=== PATIENT | female | born 1980 | race Caucasian/White ===

== ENCOUNTER 2024-11-22 12:25 | Observation (INO) | payer BC, SELFPAY ==
[2024-11-22] VITALS (10 sets, daily range): BP systolic 122–150; BP diastolic 75–94; PULSE 52–70; TEMP 36.7–36.9; O2SAT 94–98; BMI 22.7; BMI 23.5
--- NOTE | 2024-11-22 12:30 | ECG_ITS ---
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 Measurements Intervals [place] Rate: 70 P: 77 ID: [id number] QRS: 80 QRSD: 94 T: 41 QT: 396 QTc: 416 Interpretive Statements 1100 Sinus rhythm 4664 Twave abnormality, possible inferior ischemia 9150 abnormal ECG Compared to ECG 07/18/2022 23:57:37 Possible ischemia now present Electronically Signed On 11-22-2024 18:08:25 EDT by JAMES TRAORE M.D.
--- NOTE | 2024-11-22 12:30 | ED.DIZZY1 ---
HPI - Dizziness General Chief Complaint: Syncope Stated Complaint: DIZZY/WEAKNESS Time Seen by Provider: 11/22/24 12:27 History of Present Illness HPI Narrative: The patient is a 44-year-old female who had 1 day right rotator cuff surgery yesterday in [facility], this morning she was in the bathroom with her mother when she was helping her wash her hair when all of a sudden she feels that she is going to pass out, few seconds after that the patient was lowered to the floor and she did pass out according to the mom for few seconds during which she was not responding to her but she was little bit pale, there was no foaming there was no abnormal movement of the upper or lower extremities The patient denies having any chest pain before or after when she woke up she was a little bit confused At this moment the patient does not have any complaints Related Data Home Medications ?Medication ?Instructions ?Recorded ?Confirmed meloxicam 15 mg tablet 15 mg PO DAILY 11/22/24 11/22/24 oxycodone 5 mg tablet 5 mg PO Q6H PRN pain 11/22/24 11/22/24 propranolol 20 mg tablet 20 mg PO Q12H 11/22/24 11/22/24 Allergies Allergy/AdvReac Type Severity Reaction Status Date / Time No Known Drug Allergies Allergy Verified 11/22/24 12:27 Review of Systems ROS Status of ROS 10 or more systems reviewed and unremarkable except as noted in history and below PFSH PFSH Social History Little interest or pleasure in doing things: not at all Feeling down, depressed, or hopeless: not at all Exam Narrative Exam Narrative: Nurses notes and vital signs reviewed and patient is not hypoxic. General: Well-appearing and in no apparent distress. Skin: Warm, dry, no pallor noted. No rash. Head: Normocephalic, atraumatic. Neck: Supple, non-tender. Cardiovascular: Regular Rate and Rhythm without murmur, gallop or rub. Respiratory: No accessory muscle use or respiratory distress. Lungs are clear to auscultation, no wheezing, rales or rhonchi Chest Wall: no tenderness Back: No midline thoracic or lumbar vertebral tenderness. No CVA tenderness Musculoskeletal: Right shoulder immobilizer GI: Abdomen is soft, non-distended. Normal bowel sounds. No masses appreciated. No tenderness to palpation. No rebound, guarding, or rigidity noted. Neurological: A&O x4. No cranial nerve dysfunction observed Constitutional Vital Signs, click to edit/add: Last Vital Signs Temp 98.5 F 11/22/24 12:28 Pulse 62 11/22/24 12:28 Resp 18 11/22/24 12:28 BP 150/94 H 11/22/24 12:28 Pulse Ox 98 11/22/24 12:28 O2 Del Method Room Air 11/22/24 12:28 Course Vital Signs Vital signs: Vital Signs Temperature 98.5 F 11/22/24 12:28 Pulse Rate 62 11/22/24 12:28 Respiratory Rate 18 11/22/24 12:28 Blood Pressure 150/94 H 11/22/24 12:28 Pulse Oximetry 98 11/22/24 12:28 Oxygen Delivery Method Room Air 11/22/24 12:28 Temperature 98.5 F 11/22/24 12:28 Pulse Rate 62 11/22/24 12:28 Respiratory Rate 18 11/22/24 12:28 Blood Pressure 150/94 H 11/22/24 12:28 Pulse Oximetry 98 11/22/24 12:28 Oxygen Delivery Method Room Air 11/22/24 12:28 MDM - Dizziness MDM Narrative Medical decision making narrative: By the EMS the patient had a initially an EKG when they arrived to the scene she was in A-fib and the EKG initially does show irregularity in A-fib rhythm but then the patient had another EKG when she got to the ambulance and it was sinus rhythm Arrival to us the patient have a EKG that shows sinus rhythm with a heart rate of [address] elevation or depression The patient CBC and chemistry shows a low potassium of 2.8 the patient was started on IV and p.o. potassium for correction of the hypokalemia The patient will be admitted for observation and monitoring of the rhythm overnight Patient case discussed with and he agreed with above-mentioned plan Lab Data Labs: Lab Results 11/22/24 Range/Units 12:35 WBC 11.0 (4.0-11.0) 10^3/uL RBC 4.52 (4.20-5.40) 10^6/uL Hgb 14.2 (12.0-16.0) g/dL Hct 41.8 (36.0-48.0) % MCV 92.5 (81.0-99.0) fL MCH 31.4 (26.7-34.0) pg MCHC 34.0 (29.9-35.2) g/dL RDW 12.3 (11.0-15.0) % Plt Count 232 (150-450) 10^3/uL MPV 10.2 (9.5-13.5) fL Neut % (Auto) 63.0 (43.0-75.0) % Lymph % (Auto) 26.6 (20.5-60.0) % [place] % (Auto) 8.3 (1.7-12.0) % Eos % (Auto) 1.3 (0.9-7.0) % Baso % (Auto) 0.5 (0.2-2.0) % Neut # (Auto) 6.9 H (1.4-6.5) 10^3/uL Lymph # (Auto) 2.9 (1.2-3.8) 10^3/uL [place] # (Auto) 0.9 H (0.3-0.8) 10^3/uL Eos # (Auto) 0.1 (0.0-0.7) 10^3/uL Baso # (Auto) 0.1 (0.0-0.1) 10^3/uL Abs Immat Gran (auto) 0.03 (0.00-0.03) 10^3/uL Imm/Tot Granulo (auto) 0.3 (0.0-0.5) % PT 10.2 (9.0-11.6) sec INR 0.96 Sodium 143 (136-145) mmol/L Potassium 2.8 L* (3.5-5.1) mmol/L Chloride 108 H (98-107) mmol/L Carbon Dioxide 29.7 (21.0-32.0) mmol/L Anion Gap 8.1 BUN 10.0 (7.0-18.0) mg/dL Creatinine 0.74 (0.55-1.02) mg/dL Est GFR ( Amer) >60 (>=60 mL/min/1.73m^2) Est GFR (Non-Af Amer) >60 (>=60 mL/min/1.73m^2) BUN/Creatinine Ratio 13.5 Glucose 102 (74-106) mg/dL Calcium 8.4 L (8.5-10.1) mg/dL Magnesium 2.3 (1.8-2.4) mg/dL Total Bilirubin 0.2 (0.2-1.0) mg/dL AST 20 (15-37) U/L ALT 19 (14-59) U/L Alkaline Phosphatase 65 (46-116) U/L Troponin I High Sens 4.3 (4.0-51.3) pg/mL Total Protein 6.4 (6.4-8.2) g/dL Albumin 3.4 (3.4-5.0) g/dL Globulin 3.0 g/dL Albumin/Globulin Ratio 1.1 Serum HCG, Qual Negative (NEGATIVE) Discharge Plan Discharge Chief Complaint: Syncope Clinical Impression: Syncope, Acute hypokalemia, Irregular heart rhythm Patient Disposition: Admitted as Observation Time of Disposition Decision: 13:51
[2024-11-22 12:41] LABS: Basophils Absolute Auto 0.1 10^3/uL (0.0-0.1); Basophils Percent Auto 0.5 % (0.2-2.0); Eosinophils Absolute Auto 0.1 10^3/uL (0.0-0.7); Eosinophils Percent Auto 1.3 % (0.9-7.0); Hematocrit 41.8 % (36.0-48.0); Hemoglobin 14.2 g/dL (12.0-16.0); Immature Granulocytes Abs Auto 0.03 10^3/uL (0.00-0.03); Immature Granulocytes Pct Auto 0.3 % (0.0-0.5); Lymphocytes Absolute Auto 2.9 10^3/uL (1.2-3.8); Lymphocytes Percent Auto 26.6 % (20.5-60.0); Mean Corpuscular Hemoglobin 31.4 pg (26.7-34.0); Mean Corpuscular Volume 92.5 fL (81.0-99.0); Mean Platelet Volume 10.2 fL (9.5-13.5); Monocytes Absolute Auto 0.9 10^3/uL (0.3-0.8); Monocytes Percent Auto 8.3 % (1.7-12.0); Neutrophils Absolute Auto 6.9 10^3/uL (1.4-6.5); Platelet Count 232 10^3/uL (150-450); Red Blood Count 4.52 10^6/uL (4.20-5.40); Red Cell Distribution Width 12.3 % (11.0-15.0)
[2024-11-22 12:59] LABS: HCG Qualitative NEGATIVE (NEGATIVE); Internal Control Within Normal Limits
[2024-11-22 13:01] LABS: INR 0.96; Prothrombin Time 10.2 sec (9.0-11.6)
[2024-11-22 13:14] LABS: Alanine Aminotransferase 19 U/L (14-59); Albumin Globulin Ratio 1.1; Albumin Level 3.4 g/dL (3.4-5.0); Alkaline Phosphatase 65 U/L (46-116); Anion Gap 8.1; Aspartate Amino Transferase 20 U/L (15-37); BUN Creatinine Ratio 13.5; Bilirubin Total 0.2 mg/dL (0.2-1.0); Calcium 8.4 mg/dL (8.5-10.1); Carbon Dioxide 29.7 mmol/L (21.0-32.0); Chloride 108 mmol/L (98-107); Estimated GFR (African America >60 (>=60 mL/min/1.73m^2); Estimated GFR (Non-African Ame >60 (>=60 mL/min/1.73m^2); Glucose 102 mg/dL (74-106); Magnesium 2.3 mg/dL (1.8-2.4); Sodium 143 mmol/L (136-145); Total Protein 6.4 g/dL (6.4-8.2); Troponin I High Sensitivity 4.3 pg/mL (4.0-51.3)
[2024-11-22 13:26] LABS: Potassium 2.8 mmol/L (3.5-5.1)
[2024-11-22] MEDS: POTASSIUM CHLORIDE IN WATER 10 MEQ/100 ML PREMIX 100 MEQ IV ×2 (13:51→14:57)
[2024-11-22] MEDS: POTASSIUM BICARBONATE/CIT 25 MEQ TABLET EFF 50 MEQ PO (13:52)
[2024-11-22] MEDS: 0.9 % SODIUM CHLORIDE 1,000 ML 1000 ML IV ×2 (15:01→15:54)
[2024-11-22] MEDS: POTASSIUM CHLORIDE 10 MEQ ER TABLET 40 MEQ PO (15:55)
[2024-11-22] MEDS: ENOXAPARIN SODIUM 40 MG/0.4 ML SYRINGE SUBQ (16:24)
[2024-11-22 17:36] LABS: Anion Gap 11.6; BUN Creatinine Ratio 15.6; Calcium 8.1 mg/dL (8.5-10.1); Carbon Dioxide 28.4 mmol/L (21.0-32.0); Chloride 111 mmol/L (98-107); Estimated GFR (African America >60 (>=60 mL/min/1.73m^2); Estimated GFR (Non-African Ame >60 (>=60 mL/min/1.73m^2); Glucose 100 mg/dL (74-106); Sodium 147 mmol/L (136-145)
[2024-11-22] MEDS: OXYCODONE HCL 5 MG TABLET PO (19:21)
[2024-11-22] MEDS: METOPROLOL TARTRATE 25 MG TABLET PO (21:09)
[2024-11-23] VITALS (9 sets, daily range): BP systolic 123–131; BP diastolic 79; PULSE 50–91; TEMP 36.8–36.9; O2SAT 91–93
[2024-11-23 06:26] LABS: Hematocrit 38.7 % (36.0-48.0); Hemoglobin 12.9 g/dL (12.0-16.0); Mean Corpuscular HGB Conc 33.3 g/dL (29.9-35.2); Mean Corpuscular Hemoglobin 31.2 pg (26.7-34.0); Mean Corpuscular Volume 93.5 fL (81.0-99.0); Mean Platelet Volume 10.7 fL (9.5-13.5); Platelet Count 188 10^3/uL (150-450); Red Blood Count 4.14 10^6/uL (4.20-5.40); Red Cell Distribution Width 12.6 % (11.0-15.0); White Blood Count 7.2 10^3/uL (4.0-11.0)
[2024-11-23 06:39] LABS: Anion Gap 10.8; BUN Creatinine Ratio 13.8; Calcium 8.1 mg/dL (8.5-10.1); Carbon Dioxide 26.7 mmol/L (21.0-32.0); Chloride 110 mmol/L (98-107); Estimated GFR (African America >60 (>=60 mL/min/1.73m^2); Estimated GFR (Non-African Ame >60 (>=60 mL/min/1.73m^2); Glucose 89 mg/dL (74-106); Potassium 3.5 mmol/L (3.5-5.1); Sodium 144 mmol/L (136-145)
[2024-11-23] MEDS: MELOXICAM 7.5 MG TABLET 15 MG PO (08:22)
[2024-11-23] MEDS: METOPROLOL TARTRATE 25 MG TABLET PO (08:22)
[2024-11-23] MEDS: POTASSIUM CHLORIDE 10 MEQ ER TABLET 40 MEQ PO (09:04)
--- NOTE | 2024-11-23 11:46 | P.HP_ITS ---
HPI H&P: HPI History of Present Illness Chief complaint: Syncope Hypokalemia Irreguear Heart Rhythm Narrative: History of presenting illness and Hospital course: 44-year-old female with past medical history of essential hypertension, migraine headaches who just had shoulder surgery on Sunday for labral tear/biceps tendinopathy presented to ED with syncope. According to the patient, she was in her usual state of health and was washing her hair in the sink and as she was walking away from the sink, she felt very weak overall along with feeling hot/cold and felt like she was going to pass out. She laid down and passed out. Her mother witnessed the episode who called 911 and according to the mother, she lost consciousness for a few minutes. She also noted that she was snoring, breathing heavily and there was head shaking. Patient regained consciousness and was slightly confused but was back to her baseline soon after. Patient denied chest pain, shortness of breath, palpitations. When EMS arrived, her initial EKG was concerning for atrial fibrillation. She was brought over to ED for further evaluation. Workup in ED revealed hypokalemia but otherwise no significant metabolic/infectious abnormality was noted on initial workup. There was no evidence of atrial fibrillation on EKG upon arrival. She was given oral/IV potassium for hypokalemia. No significant events were noted on telemetry overnight. I personally reviewed her EKG that was concerning for atrial fibrillation and felt that there was a lot of artifact but no evidence of atrial fibrillation. Patient was evaluated earlier today and felt well with no active complaints or symptoms. She denies prior history of coronary artery disease, any significant cardiac history. She also denies history of premature coronary artery disease in family or sudden cardiac in family. She denies prior history of seizures also. I discussed in great detail and explained to the patient that it is likely that she had a vasovagal syncope however it is not unreasonable to get an echocardiogram to ensure she does not have any significant cardiac structural abnormalities. Given that she lost consciousness for a few minutes and there is questionable head shaking while she was unconscious, it is also possible that this could be a seizure. After careful discussion of risk versus benefit, patient prefers that she has outpatient echo, EEG and brain imaging like MRI and feels comfortable to go home with her spouse. I educated her on worrisome signs and symptoms and instructed to return to ED if she had similar episode. Patient is medically stable for discharge. She will need follow-up with PCP in 1 to 2 weeks. I ordered outpatient echo/EEG for her that she will need to call central scheduling to schedule. Results of echo/EEG can be followed up by her PCP as outpatient. It is not unreasonable to follow-up with neurology and I recommended following up with neurology. Discharge diagnosis: Syncope likely vasovagal Suspected seizure Hypokalemia Discharge disposition: Home Opioid HPI Opioid Management Most Recent Pain and Opioid Data: Last Pain Scale 3 Today, 10:00 Last Pain Assessment 11/22/24, 16:57 Last MAR Pain Assessment 11/22/24, 19:21 Last ORT Total Score 0 11/22/24, 15:22 Last ORT Risk Category Low Risk 11/22/24, 15:22 Review of Systems ROS Status of ROS 10 or more systems reviewed and unremark able except as noted in h istory and below PFSH [facility] Medical History (Updated 11/23/24 @ 11:57 by Shaikh Mamie MD) Rotator cuff arthropathy of right shoulder ?M12.811 - Other specific arthropathies, not elsewhere classified, right shoulder (ICD-10) Surgical History (Updated 11/22/24 @ 14:13 by Kay Bucio) Status post labral repair of shoulder ?Z98.890 - Other specified postprocedural states (ICD-10) Social History (Updated 11/23/24 @ 11:56 by Shaikh Mamie MD) Within the past year, how often did you have a drink containing alcohol: never Score interpretation: A score less than 3 is consistent with normal alcohol consumption. Smoking status: Current every day smoker Non-prescribed substance use: denies use Highest level of school completed/degree received: high school graduate Little interest or pleasure in doing things: not at all Feeling down, depressed, or hopeless: not at all Meds Home Medications and Allergies Home Medications ?Medication ?Instructions ?Recorded ?Confirmed ?Type meloxicam 15 mg tablet 15 mg PO DAILY 11/22/2411/06 History oxycodone 5 mg tablet 5 mg PO Q6H PRN pain 5 11/22/24 History propranolol 20 mg tablet 20 mg PO Q12H 11/22/2411/22 History Allergies Allergy/AdvReac Type Severity Reaction Status Date / Time No Known Drug Allergies Allergy Verified 11/22/24 12:27 Exam Constitutional Vital Signs, click to edit/add: Last Vital Signs Temp 98.3 F 11/23/24 08:18 Pulse 64 11/23/24 09:52 Resp 16 11/23/24 08:18 BP 123/79 11/23/24 08:18 Pulse Ox 93 L 11/23/24 08:18 O2 Del Method Room Air 11/23/24 08:18 Documenting provider has reviewed patient's vital signs: yes Common normals: no apparent distress and oriented x3 General appearance: cooperative [facility] Common normals: normocephalic and head/scalp atraumatic Head and scalp: normocephalic and atraumatic Eye Common normals: conjunctivae normal and no scleral icterus Conjunctiva: conjunctiva(e) normal Respiratory Common normals: normal respiratory effort and clear to auscultation bilaterally Effort & inspection: able to speak in complete sentences Auscultation: clear to auscultation bilaterally Cardio Common normals: regular rate, S1 normal heart sound and S2 normal heart sound Rate: regular rate Heart sounds: S1 normal and S2 normal GI Common normals: Normal to inspection, nondistended, normoactive bowel sounds present, soft to palpation, non-tender and no hepatosplenomegaly Palpation: soft and no hepatosplenomegaly Extremity Common normals: no clubbing, cyanosis or edema Other: Right shoulder in sling Neuro Common normals: oriented x3, moves all extremities and no focal motor deficits Psych Common normals: mental status grossly normal, denies hallucinations, denies homicidal ideation and denies suicidal ideation Results Labs Labs: Short CBC 11/22/24 11/23/24 Range/Units 12:35 05:58 WBC 11.0 7.2 (4.0-11.0) 10^3/uL Hgb 14.2 12.9 (12.0-16.0) g/dL Hct 41.8 38.7 (36.0-48.0) % Plt Count 232 188 (150-450) 10^3/uL BMP 11/22/24 11/22/24 11/23/24 12:35 17:19 05:58 Sodium 143 147 H 144 Potassium 2.8 L* 4.0 3.5 Chloride 108 H 111 H 110 H Carbon Dioxide 29.7 28.4 26.7 BUN 10.0 10.0 8.0 Creatinine 0.74 0.64 0.58 Glucose 102 100 89 Calcium 8.4 L 8.1 L 8.1 L Liver Function 11/22/24 Range/Units 12:35 Total Bilirubin 0.2 (0.2-1.0) mg/dL AST 20 (15-37) U/L ALT 19 (14-59) U/L Alkaline Phosphatase 65 (46-116) U/L Albumin 3.4 (3.4-5.0) g/dL Assessment and Plan Assessment and Plan (1) Syncope: Qualifiers: Syncope type: unspecified Qualified Code(s): R55 - Syncope and collapse (2) Acute hypokalemia: Plan Patient admitted for syncopal episode along with hypokalemia. There was suspicion of atrial fibrillation based on initial EKG done by EMS. She had no events on telemetry. Her EKG upon arrival was indicated above normal sinus rhythm. I personally reviewed her EKG done by EMT and I feel there is no evidence of A-fib on that EKG. Her potassium was repleted with p.o./IV and was normal on morning labs. Based on her symptoms/presentation, it is very likely that her syncope was vasovagal however she will benefit from further workup including an echo, EEG and an MRI as outpatient. I ordered an echo and an EEG for her. She will need to follow-up with PCP in 1 to 2 weeks.
--- NOTE | 2024-11-24 11:37 | CM.DCFOLLOWU ---
Person spoke with: patient How are you feeling?well How is your pain?none Did you understand your discharge instructions?yes Do you have any questions about your discharge instructions?no Were you given any prescriptions at discharge?no Were you able to get your prescriptions filled?N/A Do you understand how to take your medications as ordered? yes, resume home meds Do you have any questions about your follow up appointment and do you plan to keep your follow up appointment? no questions, scheduled PCP and will schedule neurology Is there anything else that you would like to discuss?no Questions/Comments/Concerns/Other:none
== END 2024-11-23 10:51 | disposition home or self-care (01) ==
LOC: ER 14:44 → MS 15:19
PROVIDERS: Admitting Provider Internal Medicine; Emergency Provider Emergency Medicine; PCP Family Medicine; Visit Provider Internal Medicine
DX: R55 Syncope and collapse (principal); I10 Essential (primary) hypertension; R94.31 Abnormal electrocardiogram [ECG] [EKG]; Z98.890 Other specified postprocedural states; F17.210 Nicotine dependence, cigarettes, uncomplicated
CPT/HCPCS: 36415; 80048; 80053; 83735; 84484; 84703; 85025; 85027; 85610; 93005; 94761; 96361; 96365; 96366; 96372; 99285; 99406; G0378; J1650; J3480

== ENCOUNTER 2024-12-18 07:18 | Outpatient (OUT) | payer BC, SELFPAY ==
--- NOTE | 2024-12-18 08:30 | CA_ITS ---
Patient Name: RUBY WARREN MR#: [id number] : 1980 Exam Date: 12/18/2024 Ordering Doctor: SHAIKH Jose CAMACHO . ECHOCARDIOGRAM REPORT PROCEDURE: CA ECHO DOPPLER COMPLETE INDICATIONS: Syncope,unspecified convulsions, hypertension, smoker COMPARISON: None. DESCRIPTION: COMPLETE ECHOCARDIOGRAM Real-time transthoracic echocardiography with 2D, M-mode, spectral and color flow Doppler performed. QUALITY: Technical quality was good. LEFT VENTRICLE: Normal chamber size. Normal left ventricular wall thickness. LV EF: Calculated left ventricular ejection fraction is 61%. Normal left ventricular ejection fraction, (>55%). DIASTOLIC: Normal diastolic function. ATRIAL SEPTUM: Visually appears intact. LEFT ATRIUM: Normal chamber size. RIGHT ATRIUM: Normal chamber size. RIGHT VENTRICLE: Normal chamber size. Normal right ventricular systolic function. TRICUSPID VALVE: Normal mobility and thickness. No stenosis with no regurgitation. Unable to assess right-sided pressures due to lack of measurable tricuspid regurgitation. MITRAL VALVE: Normal mobility and thickness. No evidence of mitral valve stenosis. There is no mitral annular calcification. No mitral regurgitation. AORTIC VALVE: Normal trileaflet appearance. No visible sclerosis. Normal leaflet mobility. No evidence of aortic valve stenosis. No aortic regurgitation. AORTIC ROOT: Normal diameter and appearance, measuring 3.1 cm. Ascending aorta is normal in size, measuring 2.5 cm. PULMONIC VALVE: Normal thickness and mobility. No stenosis. Trivial regurgitation. PERICARDIUM: No evidence of pericardial effusion. IVC: Collapses with inspiration. IVC is normal in size. PLEURA: CONCLUSION: 1. Normal ventricular size and systolic function. LVEF is estimated at 60 to 65%. 2. Normal diastolic function. 3. No significant valvular dysfunction. 4. Unable to assess right-sided pressures due to lack of measurable tricuspid regurgitation. Adult Echocardiography Procedure Report Left Ventricle LVEDD (3.7 - 5.6 cm): 4.31 cm LVESD (2.2 - 4.0 cm): 3.21 cm LVIVS thickness (0.6 - 1.2 cm): 0.87 cm LVPW thickness (0.5 - 1.0 cm): 0.80 cm e': 0.13 m/s E - e': 5.44 LVOT Max Gradient: 3.19 mm[Hg] LVOT Area (cm2): 0.89 m/s Peak Velocity (LVOT): 0.89 m/s LVOT Diameter 2.24 cm Left Atrium LA Volume Index (2D A2C): 22.03 ml/m2 Left Atrium Systolic Dimension: 2.99 cm Mitral Valve MV E to A Ratio: 1.23 Mitral Valve A-Wave Peak Velocity: 0.59 m/s Mitral Valve E-Wave Peak Velocity: 0.73 m/s Right Ventricle Aorta AO Root Diam: 3.15 cm Ascending Ao Diam: 2.47 cm Aortic Valve AoV Area (Peak Michael): 3.19 cm2, 3.19 cm2 Peak Velocity(Antegrade Flow): 1.10 m/s Peak Gradient(Antegrade Flow): 4.85 mm[Hg] Tricuspid Valve Pulmonic Valve Peak Velocity: 0.79 m/s Peak Gradient: 2.50 mm[Hg] Right Atrium Right Atrium Systolic Pressure: 44.43 ml, 44.43 ml Dictated by: Faizan Rapp M.D. on 12/18/2024 at 13:47 Approved by: Faizan Rapp M.D. on 12/18/2024 at 13:47
== END 2024-12-18 07:19 | disposition home or self-care (01) ==
LOC: CARD 07:18
PROVIDERS: PCP Family Medicine; Visit Provider Internal Medicine
DX: R55 Syncope and collapse (principal); R56.9 Unspecified convulsions
CPT/HCPCS: 93306; 95816

== ENCOUNTER 2025-06-05 11:02 | Emergency (ER) | payer BC, SELFPAY ==
--- OUTSIDE RECORDS SUMMARY | 2025-06-01 09:25 | XMS_ITS | Continuity of Care Document ---
Author Organization [facility] Address [address] [place] [address] Phone Care Team Providers Care Sales Officer Name Role Phone Prasad Manuel DORAN Primary Care Provider Vincent Chen DO Attending Provider [phone] Sidra Chatterjee DO Attending Provider Manuel Parham DO Attending Provider Care Teams Patient Care Team Team Status: Active Member Role/Relationship Status Dates Manuel Parham DO Primary Care Provider Active Visit Care Team Team Status: Inactive Member Role/Relationship Status Dates Manuel Parham DO Primary Care Provider Active S tart: March 23, 2025 End: March 23, 2025Sawyer Farias ProviderActiveStart: March 23, 2025 End: March 23, 2025 Visit Care Team Team Status: Active Member Role/Relationship Status Noé Parham DO Primary Care Provider Active S tart: March 23, 2025 Sawyer Denis ProviderActiveStart: March 23, 2025 Visit Care Team Team Status: Inactive Member Role/Relationship Status Noé Parham DO Primary Care Provider Active S tart: March 26, 2025 End: March 26, 2025Sawyer Loera ProviderActiveStart: March 26, 2025 End: March 26, 2025 Visit Care Team Team Status: Inactive Member Role/Relationship Status Noé Parham DO Primary Care Provider Active S tart: May 05, 2025 End: May 05, 2025Sawyer Farias ProviderActiveStart: May 05, 2025 End: May 05, 2025 Visit Care Team Team Status: Inactive Member Role/Relationship Status Dates Manuel Parham Primary Care Provider Active S tart: May 19, 2025 End: May 19, 2025DaSawyer Davey ProviderActiveStart: May 19, 2025 End: May 19, 2025 Patient Care Team Team Status: Inactive Member Role/Relationship Status Dates Manuel Parham Primary Care Provider Active S tart: June 01, 2025 End: June 01, 2025Sawyer Farias ProviderActiveStart: June 01, 2025 End: June 01, 2025 Chief Complaint and Reason for Visit Chief Complaint Admit Date 3 WEEKS March 23, 2025 1:02pm sinus infection March 26, 2025 11:07am R shoulder scope May 05, 2025 8 :30am med refill May 19, 2025 2:40pm 10 WEEKS June 01, 2025 1:49pm Reason for Visit Admit Date Acromioclavicular joint separation Septe 2024 1:02pm [facility], [facility] Status post arthroscopy of right shoulde r March 23, 2025 1:02pm Tear of right supraspinatus tendon [facility] 2024 1:02pm Acute cough March 26, 2025 11:07am Acute sinusitis March 26, 2025 11:07am Anxiety May 19, 2025 2:40pm Elevated blood pressure reading May 19, 2025 2:40pm Migraine May 19, 2025 2:40pm Seborrheic keratosis May 19, 2025 2:40pm Status post arthroscopy of right shoulde r May 19, 2025 2:40pm Acromioclavicular joint separation Novem 2024 1:49pm Bicipital tendinitis, right shoulder Nov ember 2024 1:49pm Status post arthroscopy of right shoulde r June 01, 2025 1:49pm Tear of right supraspinatus tendon Novem nsair 2024 1:49pm Allergies, Adverse Reactions, Alerts Allergen Type Severity Reaction Last Updated Verified Status escitalopram Allergy Unknown Dizziness May 9:10am Yes Active paroxetine Allergy Unknown did not tolerat e well (2013) May 19, 2025 9:10am Yes Active sertraline Allergy Unknown felt forgetful / 2019 May 19, 2025 9:10am Yes Active venlafaxine Allergy Unknown ruy ENG (11-18-20) Tramaine higginbotham 2024 9:10am Yes Active Social History Smoking Status Status Start Date End Date Date of Observa tion Smokes tobacco daily (finding) July 09, 1998 December 23, 2024 8:53am Observation Status Observation Response Date of Response Legal Sex Female (finding) [facility] 1980 Family History Relationship Condition Age at Onset Recorded Date/T bernardo brother Malignant neoplasm Unknown fatherHypertensionUnknowngrandparentMalignant neoplasmUnknownDeceasedUnknown motherAsthmaUnknowngrandparentDeceasedUnknownDiabetes mellitusUnknown Problems Active Problems Problem Diagnosis/Recorded Date Onset Date Status C omments Word finding difficulty June 30, 2024 5:11pm Unknown Active Status post arthroscopy of right shoulderMay 2024 12:19pmUnknownActive Acute coughFebruary 2023 2:28pmUnknownActiveNicotine dependenceDecember 2023 5:10pmUnknownActiveRotator cuff syndrome of right shoulderJanuary 2024 2:24pmUnknownActiveElevated blood pressure readingMay 2024 2:32pmUnknownActiveAcromioclavicular joint separationJanuary 2024 2:24pm UnknownActiveFeverFebruary 2023 2:32pmUnknownActiveAcute sinusitis March 26, 2025 10:16amUnknownActiveSeborrheic keratosisNovember 2024 3:04pmUnknownActiveright handChiari I malformationDecember 2023 4:58pm UnknownActiveAnxietyDecember 2023 5:10pmUnknownActiveCoughNovember 2019 9:33amUnknownActiveTear of right supraspinatus tendonApril 2024 1:01pmUnknownActiveMigraineDecember 2023 5:10pmUnknownActiveHypoglycemia December 12, 2024 10:22amUnknownActiveAtypical chest painNovember 2019 9:33am UnknownActiveBicipital tendinitis, right shoulderJanuary 2024 2:29pm UnknownActiveRestless leg syndromeDecember 2023 4:58pmUnknownActive SinusitisDecember 2023 5:21pmUnknownActivePre-op examApril 2024 1:07pmUnknownActiveEpisode of syncopeMay 2024 8:24amUnknownActiveViral illnessNovember 2019 9:33amUnknownActiveShoulder pain, rightDecember 2023 5:11pmUnknownActiveCervical painDecember 2023 5:18pmUnknownActive BronchitisNovember 2020 12:52pmUnknownActiveHypertensionDecember 2023 5:10pmUnknownActiveHypokalemiaMay 2024 8:25amUnknownActive Inactive/Resolved Problems Problem Diagnosis/Recorded Date Onset Date Status C omments Influenza B September 13, 2023 1:29pm Unknown Resolved Medications Medication Status Dose Units Route Directions Qty Days Refills S tart Date Stop Date End Date Reason(s) Instructions Adherence Azithromycin 250 mg tablet Discontinued 0 PO.WDABXZD43Vucuf 2023 11:29amMarch 2023 10:40amFor 250 mg dose pack: take 500 mg today (day 1), then 250 mg for 4 days (days 2-5) POClotrimazole 10 mg cxoenuCyeoyuzgddxe5WLVmre times blprs3262Jzxzs 2023 12:00amMarch 2023 11:57amdissolve 1 judith on tongue orally five times daily;Famotidine (Pepcid) 20 mg mhzkxoJynogphlnvyc96AXHMVjccv mdzik116TrmpcSeptember 11, 2023 12:00am September 11, 2023 12:00pmClotrimazole 10 mg zvvhouYihzjmrentrp0VSHwhn times daily 3571Sepch 2023 11:57amMarch 2023 10:40amdissolve 1 judith on tongue orally five times daily;Famotidine (Pepcid) 20 mg bpihuxNeejvnjovsas32UNVFLcxue nytxu370JzmycSeptember 11, 2023 11:57amMarch 2023 8:58amFamotidine 20 mg tablet Discontinued0.ROUTE.WHYEKZQ625Jkwxr 2023 8:58amDecember 2023 5:06pm take 1 tablet by mouth twice a dayClonazepam (Klonopin) 1 mg tabletDiscontinued1 MGPODaily at hrhjwcj773Uxhcjxg 2024 12:00amJanuary 2024 2:19pm Restless legs syndrome Restless legs syndromeadminister 30 minutes before bedtimeSpironolactone 50 mg torcanFfifuniescrp56KGEOQbgjq728Epdgydg 2024 12:00amMay 2024 3:59pm Alprazolam (Xanax) 0.5 mg tabletDiscontinued0.5MGPOTwice daily as needed for dzvjnlm617Dexxg 2024 11:00pmMay 2024 2:17pmBiceps tendinitis of right shoulder Bicipital tendinitis, right shoulderto be used for MRI on 10/16/2024 take 1 tablet 30 min before MRI, may repeat if needed.Oxycodone 5 mg tablet Yzmwapfpzbyv6CROVR4K as needed for Ndnr7363Uvc 2024June 2024 7:51am Status post arthroscopy of right shoulder Other specified postprocedural statesDO NOT RECONCILE UNTIL DOS 11/21/24 TO BE USED POST OPDocusate Sodium (Colace) 100 mg xzowhhhIskyreqmkkgg392QFJY Twice daily as needed for Umskcxxasapi17192Lxs 14th, 2025 11:00pmAugust 2024 9:50amDO NOT RECONCILE UNTIL DOS 11/21/24 TO BE USED POST OPAcetaminophen 500 mg jpatocOorvmmjpluri680JXJGU8V as needed for Bpju205Pio 2024 11:00pmJune 2024 10:04amDO NOT RECONCILE UNTIL DOS 11/21/24 TO BE USED POST OPMeloxicam 15 mg wsafwpDewkgvigxhrg82UVPXawsil54382Sau 2024 11:00pmMay 2024 8:16amDO NOT RECONCILE UNTIL DOS 11/21/24 TO BE USED POST OPMetoprolol Succinate 25 mg tablet extended release 24 hr Discontinued0.ROUTE.BWKJFQN285Yhlt 2024 11:20amAugust 2024 10:09am TAKE 1 TABLET BY MOUTH EVERY DAYLosartan 25 mg tabletDiscontinued0.ROUTE.COMPLEX 901July 2024 1:59pmAugust 2024 10:09amTAKE 1 TABLET BY MOUTH DAILY Naproxen 500 mg tabletDiscontinued0.ROUTE.WZWZPBA531Lzgccxq 2024 5:54am May 19, 2025 2:48pmTAKE 1 TABLET BY MOUTH TWICE A DAYAcetaminophen (Acetaminophen Extra Strength) 500 mg vhyvduUjcdsy0277QPZCVvebv 6 hours as needed for painApril 2024 11:00pmUnknownPrednisone 50 mg tablet Gmfsuljtzmbc75NAKYGwfdc831Vxwinazf 2020 11:00pmApril 2022 11:30am administer with food or milkPromethazine-Dm 6.25-15 mg/5 mL zzxtoFakqvwukwoyq15 JPSZR9K as needed for ozeav7304Tzkorndq 2020 11:00pmApril 2022 11:29amBenzonatate 200 mg cqvsztrSgsawvhkmrvl882ZWAQTxklh times daily as needed for dzngi217Jklllhvq 2020 11:00pmApril 2022 11:29amOmeprazole 40 mg capsule,delayed release(DR/EC)Iyhynsextsyx92WFJBMpxoiFzjnu 2022 11:00pm September 04, 2023 2:02pmClindamycin Phosphate 1 % sypKbaavb1NPLLWSEAXOEOB .daily as needed for rashDecember 2023 12:00amUnknownFamotidine 20 mg bqnzrwApwgkkaozfqd24PKOJHdwkj dailyDecember 2023 5:06pmMay 2024 3:59pmClonazepam (Klonopin) 0.5 mg tabletDiscontinued0.5MGPODaily at wrmnxeb624 June 30, 2024 12:00amJanuary 2024 12:26pmRestless legs syndrome Restless legs syndromeMeloxicam 15 mg lydorvRplxvbgvyafj84CNNSemaaz82666Adv 2024 8:16amAugust 2024 9:50amLosartan 25 mg ymlrtrGhijgi47MTZYFjhwj February 13, 2025 10:09amUnknownMetoprolol Succinate 25 mg tablet extended release 24 vlIpuvxz91ANSUWflvhRqwzph 2024 10:09amUnknownLorazepam (Ativan) 0.5 mg tabletDiscontinued0.5MGPODaily at bedtime as needed for hkgnhrp814Pmymiu 2024 11:00pmNov2024 3:01pmAnxiety Anxiety disorder, unspecifiedNaproxen 500 mg nplzlpKmparyjiolpn800BPCQSlgjo lsivr35196Iqmxst 2024 11:00pmOctober 2024 5:54amNaproxen 500 mg irpyipTgybzvhjgvwe762APCVFzfdx daily as neededNov2024 2:48pmNov2024 2:21pmLorazepam (Ativan) 0.5 mg tabletActive0.5MGPODaily at bedtime as needed for miwqaoa30843Gydkwrrq 11th, 2025 3:01pmAnxiety Anxiety disorder, unspecifiedUnknownHydrocodone-Homatropine (Hycodan) 5-1.5 mg/5 mL (5 mL) qbquoaapDvdsywqzhova7OFYGOlluh 6 hours as needed for tyjnt24380 March 26, 2025Nov2024 2:43pmAcute cough Acute coughPrednisone 20 mg wguzouMquomsniwayf6XJ.with food or xldh0439Krrblubmn 17th, 2025 11:00pmNovember 2024 2:47pmtake 3 tablets a day x3 days, 2 tabs a day x3 days and then 1 tab a day x3 days orally WITH FOOD ORMILK;Albuterol Sulfate 90 mcg/actuation HFA aerosol igccfncNutsdl4ZSOOHYTAVHFBZCgnc times daily as needed for shortness of breath or wheezing8.51Sept2024 11:00pm UnknownAmoxicillin-Pot Clavulanate 875-125 mg zrawiwTnlydswtgmnd7OXGMRDvgle mohhe21807Inlagiwbp 17th, 2025 11:00pmNovember 2024 2:42pmwith food Albuterol Sulfate 90 mcg/actuation HFA aerosol agdmhvfOzegmgyjfuyv6PXPY INHALATIONFour times daily as needed for shortness of breath or wheezingFebruary 2023 12:00amMay 2024 2:17pmFreeTextSi inhalations Inhalation qid; Note: Source Status: Start; Refills: 1; Provider: Moen GAONAydrocodone- Homatropine 5-1.5 mg/5 mL sgjfuKtgaasdsofqj1QAMMHnhja 6 anoqf7Khfknxjl 2023 12:00amFebruary 2023 2:36pmFreeTextSi mL as needed Orally every 6 hrs; Note: Source Status: Start; Refills: 0; Qty: 140 ml; Provider: Prasad Jackson CPrednisone 20 mg qosbswIppsrbtvlfhi2HQ.with food or fffy4164Xwcaoemx 2023 12:00amMarch 2023 10:40amtake 3 tablets a day x3 days, 2 tabs a day x3 days and then 1 tab a day x3 days orally WITH FOOD ORMILK;Oseltamivir (Tamiflu) 75 mg ekdqwyuNolzglqgbmrc22DKFGVqksx gxqeh3331Yuejasry 2023 12:00amMarch 2023 10:40amHydrocodone-Homatropine 5-1.5 mg/5 mL mfxrkGalsovjxzjuf1ZYMAJucxm 6 ovwfn36542Puttaivm ecember 2023 5:36pmAcute cough Acute coughFreeTextSi mL as needed Orally every 6 hrs; Note: Source Status: Start; Refills: 0; Qty: 140 ml; Provider: Prasad Jackson CAzithromycin 250 mg bxnmwjNehlxfockitb3IL.TKKQZDI55Xwtsz 2023 12:00amMarch 2023 11:29amFor 250 mg dose pack: take 500 mg today (day 1), then 250 mg for 4 days (days 2-5) PODoxycycline Hyclate 100 mg wsmqmneGftidwllmmfx078DSDUQhyfw ubjvn82571Gvcih 2023 12:00amMarch 2023 11:42amNystatin 100,000 unit/mL suspension Srrxdizgutiv2OHRMFymy times sbzjb07708Ovwaz 2023 12:00amMarch 2023 11:42amswish and swallowMethylprednisolone (Medrol (Aguila)) 4 mg tablets,dose pack Ofaqsysgxcoz1QLvic package ptcvhekiwx998Axmdifc 2024 12:00amMay 2024 3:59pmPO PER PKG DIR for 6 daysMeloxicam 15 mg qxeuqyQngzmekrmxry12SREWLldoj6658 3January 2024 12:00amMay 2024 3:59pmPropranolol 20 mg tablet Xyiwjspamief4YA.EETQRPX92737Sxe 2024 11:00pmMay 2024 8:54amtake 2 (20 MG tablets) in the AM orally and then take 1 (20 MG) tablet in the evening; Losartan 25 mg mbwoxkGeuewhwiwmpz53IQMQJyeiy657Tgap 2024 11:00pmJuly 2024 1:59pmMetoprolol Succinate 25 mg tablet extended release 24 hrDiscontinued 47RQJXJvgee390Ozz 2024 11:00pmJune 2024 11:20amMeloxicam 15 mg ybeegeWjrqrt70HDZFAidlr61723Jcnvueoc 2024 12:00amComplies with drug therapy Medical Equipment Device Date Implanted Device Details Tendon/ligament bone anchor, bioabsorbable November 21, 2024 PATTI: [id number] Issuing Agency: [facility] Device Id: [id number] Expiration Date: 2028-08-08 Lot Number: [id number]/ligament bone anchor, bioabsorbableMay 2024UDI: [id number] Issuing Agency: [facility] Device Id: [id number] Expiration Date: 2028-10-06 Lot Number: [id number]/ligament bone anchor, bioabsorbableMay 2024UDI: [id number] Issuing Agency: [facility] Device Id: [id number] Expiration Date: 2028-10-06 Lot Number: [id number] Vital Signs Vital Reading Result Reference Range Collection Date/Time Height 67 [in_i] March 23, 2025 12:81nyQljtfv18.00 kgSept2024 12:26pmBMI (Body Mass Index)23.1 kg/e3Jkcpkljfx 2024 12:72wzRlekmi89 [in_i]May 19, 2025 2:17vuOzsqwm44.76 kgNovember 2024 2:23pmBody Juhtkocycim07.1 [degF] 97.6-99.0May 19, 2025 2:23pmHeart Rate98 /ole18-596VglbcdbpMay 19, 2025 2:23pmOxygen saturation by Pulse vojjwkyw56 %95-100May 19, 2025 2:23pmBP Hewwhols529 mm[Hg]100-140May 19, 2025 2:23pmBP Lizlhiyvr45 mm[Hg]60-100 May 19, 2025 2:23pmBMI (Body Mass Index)24.4 kg/y9Xkawoury2024 2:23pm Advance Directives Advance Directive Response Recorded Date/ Time Advance Directives No September 08 9:58am Insurance Providers Guarantor Ilana Harris Address [address] [place] [address] Route [facility] [place] [address]Woalpfd Info.Home Phone: Coverage Status Update:2024 Payer Group Member ID Coverage Type Subscriber Relationship to Subscriber Effective Date Expiration Date Wilbur OMALLEY/DELMI Id: [id number] K Neill Id: [id number] [address] [place] [address] Home Phone: Email: [email or web address] Encounter Location(s) Arrival/Admit Date Discharge/Departure Date Discharge/Departure Disposition Provider(s) Departed Physician/ Provider Office Visit -[facility] March 23, 2025 1:02pm March 23, 2025 1:52pm Discharged to home care or self care (routine discharge) Vincent Chen DO Non-patient / Non-visit -[facility] 2024 11:59pm Brenda Bahenaclaymonted Physician/Provider [facility] 11:23amDischarged to home care or self care (routine discharge)Kandace FloresFormerly [facility] 2024 8:30amOctober 2024 8:31amDischarged to home care or self care (routine discharge)Riaz Farias Physician/Provider [facility] 3:11pmDischarged to home care or self care (routine discharge)Brneda Floresclaymontramonita Physician/Provider [facility] 2024 2:21pm Discharged to home care or self care (routine discharge)Vincent Chen DO Recent Diagnosis Onset Date Admit Date Acromioclavicular joint separation Unknown March 23, 2025 1:02pm Bicipital tendinitis, right shoulder Unknown March 23, 2025 1:02pm Status post arthroscopy of right shoulder Unknow n March 23, 2025 1:02pm Tear of right supraspinatus tendon Unknown March 23, 2025 1:02pm Acute cough Unknown March 26, 2025 11:07am Acute sinusitis Unknown March 26, 2025 11:07am Anxiety Unknown May 19, 2 025 2:40pm Elevated blood pressure reading Unknown May 19, 2025 2:40pm Migraine Unknown May 19, 2 025 2:40pm Seborrheic keratosis Unknown May 192024 2:40pm Status post arthroscopy of right shoulder Unknow n May 19, 2025 2:40pm Acromioclavicular joint separation Unknown June 01, 2025 1:49pm Bicipital tendinitis, right shoulder Unknown June 01, 2025 1:49pm Status post arthroscopy of right shoulder Unknow n June 01, 2025 1:49pm Tear of right supraspinatus tendon Unknown June 01, 2025 1:49pm Assessments Author Manuel Parham [facility] 2024 3:17pmThe above note written by ___Janeth Dewitt____ acting as human recorder, note dictated by Dr. Traylor .I performed the above HPI, ROS, and Examination. I formulated and dictated the treatment plan and was present for entire encounter. Manuel Parham D.O. Author Manuel Parham [facility] 2024 10:27amThe above note written by ___Janeth Dewitt____ acting as human recorder, note dictated by Dr. Traylor .I performed the above HPI, ROS, and Examination. I formulated and dictated the treatment plan and was present for entire encounter. Manuel Parham D.O. Plan of Treatment Author Janeth Dewitt [facility] 2024 3:11pmShe voices that big open areas and large areas of people cause her to have anxiety or panic. She has used the Ativan a few times and it does help. She has considered looking into getting a counselor. 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 She plans her routes before she goes anywhere. She knows when she thinks about it this just makes it worse. A long bridge is not good for her. She used to be able to drive anywhere, she used to drive to [place] alone and never had an accident or anything to cause this trouble. She had an issue with grocery stores for a long time until one day she was just able to go into a store. After she had her youngest son is when she noticed she had trouble driving. She still has a couple of tablets of Ativan but would like a refill today. Frequent appointments needed due to addiction potential of medication. Pain inventory sheet completed and reviewed if opioid medication given. Pain contract is on file if pertinent. Patient will have office visits every three months for evaluation or sooner if needed. I discussed addiction potential of medication with the patient. Discussed with the patient and provided a treatment plan including the use of non-opioid analgesics and non-pharmacological intervention with patient if treated for pain. We have discussed realistic benefits and known risks of opioid/controlled therapy and the expected benefits for both pain and function. These benefits outweigh the risks. Patient has been counselled on the dangers of combining opioids/controlled prescriptions with alcohol or other sedatives and counseled on the safe storage and disposal of opioids/controlled prescriptions. Do not drive or operate heavy machinery after taking opioid/controlled medication. I have verified that no current substance abuse treatments are being prescribed.? She has been checking her blood pressure on her own and her reading at home recently was 138/99. She does have an appointment with her driver soon and states she said everything looked and sounded fine . We discussed that her blood pressure reading is higher than we would like to see. She voices that she has a migraine today which she feels is contributing to the elevated blood pressure. She feels her anxiety is also causing her blood pressure to be elevated. Today she has an ice pick headache which she voices come and go for her. She has had this happen all day today. She had to have another injection in her shoulder from Dr. Chen and if she is not any stronger by the first of the year she will return to PT. She has been trying to do PT on her own at home. She returns to see Dr. Chen on 06/01/25. She does continue to have pain when lifting her arm as if to ask a question, she has trouble putting on deodrant, it is difficult to put her seat belt on but she voices that she is getting there , it is just a slow process. Anticipatory guidance given. These are not precancerous. She may develop more of these. She can see a engine pilot for evaluation. If they bleed then they are not seborrheic keratosis. Author Janeth Dewitt [facility] 2024 10:19amShe returned to work earlier this week and is working around materials that she feels may have contributed to the sinus infection. I would like to treat her with Augmentin and Prednisone. Guidance is given on how to take the antibiotic. She is to avoid NSAID medication while on Prednisone. Eat yogurt daily while on ATB to prevent GI upset. Push fluids and rest. Side effects/risks/benefits of medication were reviewed. She would like to have cough medication on hand to use when she is home, she voices that she is coughing to the point of dry heaving. She cannot drive or drink alcohol after taking. Side effects/risks/benefits of medication were reviewed. I will also provide her with an inhaler to have on hand to use if needed. Guidance is given on how to use the inhaler. [facility] 2024 12:48pmShe continues to slowly improve from surgery. Incisions have healed well. Her symptoms have improved with the injection done at last visit. Advised she continue to work with formal therapy on strength. When she is done with formal therapy, she should continue to do the exercises on her own. Advised she can continue to see improvements for up to 1 year from surgery. She can slowly progress back to normal activity. She can return to work on 03/24/25. Work note provided to patient. Post-operative physical therapy protocol: standard rotator cuff repair Weightbearing: progress weightbearing following the protocol, discontinue sling on 01/02/25 Return to work: on 03/24/25 Patient will follow-up in 10 weeks. Author Dottie [facility] 2024 12:39pm[] Post-operative physical therapy protocol: standard rotator cuff repair Weightbearing: progress weightbearing following the protocol, discontinue sling on 01/02/25 Return to work: on 03/24/25 Patient will follow-up in [] Future Tests Future scheduled test information is unavailable Pending Tests Pending diagnostic test information is unavailable Future Visits Future appointment information is unavailable Future Procedures Future procedure information is unavailable Future Medications Future medication information is unavailable Patient Instructions Patient instructions are unavailable
[2025-06-05 11:06] VITALS: BP 200/100; PULSE 87; TEMP 36.4; O2SAT 98; BMI 24.3
--- OUTSIDE RECORDS SUMMARY | 2025-06-05 11:20 | XMS_ITS | Clinical Summary ---
Author Organization [facility] Address [address], [address] [place] [address] Care Team Providers Care Food Safety Manager Name Role Phone Manuel Parham DO Primary Care Provider Unavail able Allergies No known active allergies Medications No known medications Family History Medical HistoryRelationNameCommentsDiabetesFatherHigh Blood PressureFatherStroke MotherRelationNameStatusCommentsFatherMother Social History Tobacco UseTypesPacks/DayYears UsedDateSmoking Tobacco: Every DaySmokeless Tobacco: NeverCommentsUnknownSex and Gender InformationValueDate RecordedSex Assigned at BirthNot on fileLegal GfkKhtepn88/19/2021 10:21 AM EDT Gender IdentityNot on fileSexual OrientationNot on file Last Filed Vital Signs Vital SignReadingTime TakenCommentsBlood Pressure--Pulse--Wtflcqsotvg09.7 ??C (98 ??F)12/24/2020 10:08 AM EDTRespiratory Rate--Oxygen Saturation--Inhaled Oxygen Concentration--Huzodt98.8 kg (145 lb)12/24/2020 10:08 AM JNWEutoqu218.2 cm (5' 7 )12/24/2020 10:08 AM EDTBody Mass Index22.71012/24/2020 10:08 AM EDT Plan of Treatment Not on file Insurance Care Teams Team MemberRelationshipSpecialtyStart DateEnd Date Manuel Parham DO [address] [place] [address] PCP - Generalmily Medicine12/24/20
--- OUTSIDE RECORDS SUMMARY | 2025-06-05 11:20 | XMS_ITS | Clinical Summary ---
Author Organization [facility] Address [address] [place] [address] Care Team Providers Care Spanish Teacher Name Role Phone Osito Pan DO Unavailable [phone] Manuel Parham MD Primary Care Provider [phone] Allergies Active AllergyReactionsCriticalityNoted ManaTpscdawfCqysnwdfwy20/03/2023 Tricyclic Ziurtixhclasdbi27/04/2025 Medications MedicationSigDispense QuantityRefillsLast FilledStart DateEnd DateStatus LORazepam (Ativan) 1 MG tablet Indications:Chronic migraine without aura without status migrainosus, not intractableTake 1/2 hour before MRI scan. Suggest calling MRI facility to confirm that they are running on time. 1 tablet 5Active verapamil SR (Calan SR) 120 MG ER tablet Indications:Chronic migraine without aura without status migrainosus, not intractableTAKE 1 TABLET BY MOUTH AT BEDTIME, DO NOT CRUSH OR CHEW 90 tablet 5Active Family History Medical HistoryRelationNameCommentsCancer of sinusBrotherDiabetesFatherDiabetes Maternal GrandfatherDiabetesMaternal GrandmotherAsthmaMotherDiabetesPaternal GrandfatherBreast cancerPaternal GrandmotherDiabetesPaternal GrandmotherColon cancerNeg HxOvarian cancerNeg HxRelationNameStatusCommentsBrotherFatherAlive Maternal GrandfatherMaternal GrandmotherMotherAlivePaternal GrandfatherPaternal Grandmother Social History Tobacco UseTypesPacks/DayYears UsedDateSmoking Tobacco: Every DayCigarettes Smokeless Tobacco: Never Tobacco Cessation:Ready to Q uit: Not Asked; Counseling Given: Not Answered Alcohol UseStandard Drinks/WeekCommentsYes0 (1 standard drink = 0.6 oz pure alcohol)caffeine: 3-4 cups per day coffee & sodaCommentsUnknownSex and Gender InformationValueDate RecordedSex Assigned at BirthNot on fileLegal Sex Iyywss7009/20/2022 6:54 PM EDTGender IdentityNot on fileSexual OrientationNot on fileOccupationIndustryJob Start DateJob End Dateprocess tech at ventraNot on fileNot on fileNot on file Last Filed Vital Signs Vital SignReadingTime TakenCommentsBlood Jcopvkuy975/78008/12/2024 3:22 PM EST Yslyx930608/12/2024 3:22 PM ESTTemperature--Respiratory Rate--Oxygen Dqsbaeuugt59% 08/12/2024 3:22 PM ESTInhaled Oxygen Concentration--Wmojju68.9 kg (145 lb 3.2 oz)08/12/2024 3:22 PM XWIPkfvhr794.7 cm (5' 5.25 )08/03/2022 12:00 PM ESTBody Mass Index23.98008/03/2022 12:00 PM EST Plan of Treatment Not on file Insurance * Guarantor: Ilana Harris TypeRelation to PatientDate of BirthPhone Billing AddressPersonal/KkzmmwFkpi10/28/1981 [address] [address] * Guarantor: Ilana Harris TypeRelation to PatientDate of BirthPhone Billing AddressPersonal/PxkrolMiqa41/28/1981 [address] [address] Care Teams Team MemberRelationshipSpecialtyStart DateEnd Date Manuel Parham MD [address] [place] [address] [place] [address] PCP - GeneralFamily Medicine08/12/24 Osito Pan DO [address] [place] [address] Referring PhysicianNeurolog08/12/24
--- OUTSIDE RECORDS SUMMARY | 2025-06-05 11:20 | XMS_ITS | Clinical Summary ---
Author Organization [facility] Address [address] [place] [address] Care Team Providers Care Svp Research [employer]business Operations Name Role Phone Manuel Parham DO Primary Care Provider [phone] Manuel Parham DO Unavailable [phone] Osito Pan DO Unavailable [phone] Allergies No known active allergies Medications MedicationSigDispense QuantityRefillsLast FilledStart DateEnd DateStatus propranolol ER (INDERAL LA) 80 mg 24 hr capsule Take 80 mg by mouth once daily.02/23/2021ctive Active Problems ProblemNoted DateDiagnosed DateCerebellar tonsillar brcqska9103/18/2021 Nonintractable vckisqmj69/10/2021 Social History Tobacco UseTypesPacks/DayYears UsedDateSmoking Tobacco: Every PfsNxdntpmrkz953 Smokeless Tobacco: NeverAlcohol UseStandard Drinks/WeekCommentsYes0 (1 standard drink = 0.6 oz pure alcohol)SociallyPHQ-2AnswerDate RecordedPHQ-2 score1 1Area Deprivation IndexAnswerDate RecordedNational Score (1-100), lower number is lower riskNot on file03/18/2021tate Score (1-10), lower number is lower riskNot on file03/18/2021ata from: https://www.neighborhoodatlas.medicine.[facility].edu/. Last address used for calculationNot on file03/18/2021CommentsUnknownSex and Gender InformationValueDate RecordedSex Assigned at BirthNot on fileLegal SexFemale 11/15/2020 3:18 PM EDTGender IdentityNot on fileSexual OrientationNot on file Last Filed Vital Signs Vital SignReadingTime TakenCommentsBlood Qsvlocth335/7709 10:48 AM EDT Kehhb1675 10:48 AM EDTTemperature--Respiratory Rate--Oxygen Saturation-- Inhaled Oxygen Concentration--Upfave07 kg (145 lb 8.1 oz)03/18/2021 10:48 AM EDT Gxrhrr834.2 cm (5' 7 )03/18/2021 10:48 AM EDTBody Mass Index22.7903/18/2021 10:48 AM EDT Plan of Treatment Health MaintenanceDue DateLast DoneCommentsAnxiety Bcqvioqbl83/28/2001Depression Nendzcflt58/28/2001HIV Ldkcqvlet13/28/2001Hepatitis C Xoedroizn05/28/2001 DTaP,Tdap,Td Vaccine (1 - Tdap)2001Hepatitis B Vaccine (1 of 3 - 19+ 3- dose series)2001Cervical Cancer Iojgyvikq10/28/2004HPV Vaccine (1 - 3-dose SCDM series)2009Mammogram Lzmafwuiu71/28/2023Covid-19 Vaccine ( - season)2025Influenza Vaccine (#1)2025 Insurance * Guarantor: Luly Harris TypeRelation to PatientDate of BirthPhone Billing IcaobprZduqxAgdr58/[birth year][address] [place] [address] Care Teams Team MemberRelationshipSpecialtyStart DateEnd Date Manuel Parham DO [address] [place] [address] PCP - GeneralFamily Medicine11/15/20 Manuel Parham DO [address] [place] [address] ReferringFamily Medicine03/03/21 Osito Pan DO [address] [place] [address] ISAURA Referring TeamNeurology2
--- NOTE | 2025-06-05 11:22 | ECG_ITS ---
[facility] Test Date: 2025-06-05 Pat Name: RUBY WARREN Department: Room: - Gender: Female Nurse Rn Bsn: : 1980 Requested By: 1030 Order Number: [id number] Reading MD: JAMES TRAORE M.D. Measurements Intervals Geraldine Rate: 78 P: 74 OK: 158 QRS: 81 QRSD: 94 T: 70 QT: 392 QTc: 425 Interpretive Statements 1100 Sinus rhythm 9110 normal ECG Compared to ECG 11/22/2024 12:29:38 Possible ischemia no longer present Electronically Signed On 06-05-2025 13:29:11 EST by JAMES TRAORE M.D.
--- NOTE | 2025-06-05 11:23 | ED.GENADUL1 ---
HPI HPI - General Adult General Chief complaint: Recheck/Abnormal Lab/Rx Stated complaint: HIGH BLOOD PRESSURE, HEADACHE Time Seen by Provider: 06/05/25 11:15 Source: patient Mode of arrival: walk-in Limitations: no limitations History of Present Illness HPI narrative: 44-year-old female presenting for elevated blood pressure. She has a history of hypertension and takes losartan and metoprolol and she has been taking these since November. No change in the dosing. Symptoms began last night and persisted today and included fogginess and a headache. She does not complain of chest pain or palpitations or syncope. No fever or vomiting. No unusual stress. Related Data Home Medications ?Medication ?Instructions ?Recorded ?Confirmed meloxicam 15 mg tablet 15 mg PO DAILY 11/22/24 06/05/25 losartan 25 mg tablet 25 mg PO DAILY 06/05/25 06/05/25 metoprolol succinate 25 mg 25 mg PO DAILY 06/05/25 06/05/25 tablet,extended release 24 hr Allergies Allergy/AdvReac Type Severity Reaction Status Date / Time No Known Drug Allergies Allergy Verified 11/22/24 12:27 Opioid HPI Opioid Management Most Recent Opioid Data: Last Pain Scale 3 11/23/24, 10:00 Last ORT Total Score 0 11/22/24, 15:22 Last ORT Risk Category Low Risk 11/22/24, 15:22 Review of Systems ROS Narrative A ten point review of systems is negative except as noted above. PFSH [facility] Medical History (Updated 06/05/25 @ 13:04 by Burak Koehler MD) Syncope ?R55 - Syncope and collapse (ICD-10) Rotator cuff arthropathy of right shoulder ?M12.811 - Other specific arthropathies, not elsewhere classified, right shoulder (ICD-10) Surgical History (Updated 11/22/24 @ 14:13 by Kay Bucio) Status post labral repair of shoulder ?Z98.890 - Other specified postprocedural states (ICD-10) Social History (Updated 11/23/24 @ 11:56 by Shaikh Mamie MD) Within the past year, how often did you have a drink containing alcohol: never Score interpretation: A score less than 3 is consistent with normal alcohol consumption. Smoking status: Current every day smoker Non-prescribed substance use: denies use Highest level of school completed/degree received: high school graduate Little interest or pleasure in doing things: not at all Feeling down, depressed, or hopeless: not at all Exam Narrative Exam Narrative: Nurses note and vital signs reviewed General:The patient appears well and in no apparent distress.Patient is resting comfortably on cart. Skin:Warm, dry, no pallor noted.There is no rash noted. Head:Normocephalic, atraumatic Eye: Normal conjunctiva, no drainage Ears, Nose, Mouth, and Throat: oral mucosa is moist. Nares patent. Cardiovascular:Regular Rate and Rhythm Respiratory:Patient is in no distress, no accessory muscle use, lungs are clear to auscultation, no wheezing, rales or rhonchi Back:non-tender, no CVA tenderness bilaterally to percussion. GI: Soft and nontender Musculoskeletal: The patient has no evidence of calf tenderness, no pitting edema, symmetrical pulses noted bilaterally Neurological:A&O, normal speech Psychiatric:Cooperative Constitutional Vital Signs, click to edit/add: Last Vital Signs Temp 97.5 F L 06/05/25 11:06 Pulse 87 06/05/25 11:06 Resp 18 06/05/25 11:06 BP 145/80 H 06/05/25 12:52 Pulse Ox 98 06/05/25 11:06 O2 Del Method Room Air 06/05/25 11:06 Course Vital Signs Vital signs: Vital Signs Temperature 97.5 F L 06/05/25 11:06 Pulse Rate 87 06/05/25 11:06 Respiratory Rate 18 06/05/25 11:06 Blood Pressure 200/100 H 06/05/25 11:06 Pulse Oximetry 98 06/05/25 11:06 Oxygen Delivery Method Room Air 06/05/25 11:06 Temperature 97.5 F L 06/05/25 11:06 Pulse Rate 87 06/05/25 11:06 Respiratory Rate 18 06/05/25 11:06 Blood Pressure 145/80 H 06/05/25 12:52 Pulse Oximetry 98 06/05/25 11:06 Oxygen Delivery Method Room Air 06/05/25 11:06 Medical Decision Making MDM Narrative Medical decision making narrative: She presented with an elevated blood pressure but her blood pressure came down gradually without any intervention. Blood work is normal and she is discharged home. She will follow-up for blood pressure recheck at her doctor's office. Treatment diagnosis and follow-up were discussed with the patient. Differential Diagnosis Differential Diagnosis: Hypertension, stress Lab Data Lab results reviewed: Yes I reviewed the patient's lab results Labs: Lab Results 06/05/25 Range/Units 11:33 WBC 7.5 (4.0-11.0) 10^3/uL RBC 5.41 H (4.20-5.40) 10^6/uL Hgb 17.1 H (12.0-16.0) g/dL Hct 49.8 H (36.0-48.0) % MCV 92.1 (81.0-99.0) fL MCH 31.6 (26.7-34.0) pg MCHC 34.3 (29.9-35.2) g/dL RDW 12.6 (11.0-15.0) % Plt Count 242 (150-450) 10^3/uL MPV 10.3 (9.5-13.5) fL Neut % (Auto) 65.8 (43.0-75.0) % Lymph % (Auto) 22.5 (20.5-60.0) % [place] % (Auto) 8.6 (1.7-12.0) % Eos % (Auto) 1.5 (0.9-7.0) % Baso % (Auto) 1.1 (0.2-2.0) % Neut # (Auto) 4.9 (1.4-6.5) 10^3/uL Lymph # (Auto) 1.7 (1.2-3.8) 10^3/uL [place] # (Auto) 0.6 (0.3-0.8) 10^3/uL Eos # (Auto) 0.1 (0.0-0.7) 10^3/uL Baso # (Auto) 0.1 (0.0-0.1) 10^3/uL Abs Immat Gran (auto) 0.04 H (0.00-0.03) 10^3/uL Imm/Tot Granulo (auto) 0.5 (0.0-0.5) % Sodium 136 (136-145) mmol/L Potassium 3.2 L (3.5-5.1) mmol/L Chloride 102 (98-107) mmol/L Carbon Dioxide 28.5 (21.0-32.0) mmol/L Anion Gap 8.7 BUN 11.0 (7.0-18.0) mg/dL Creatinine 0.62 (0.55-1.02) mg/dL Est GFR ( Amer) >60 (>=60 mL/min/1.73m^2) Est GFR (Non-Af Amer) >60 (>=60 mL/min/1.73m^2) BUN/Creatinine Ratio 17.7 Glucose 94 (74-106) mg/dL Calcium 9.2 (8.5-10.1) mg/dL Troponin I High Sens 5.2 (4.0-51.3) pg/mL Serum HCG, Qual Negative (NEGATIVE) ECG Data Attestation: I personally reviewed and interpreted this ECG as follows: (EKG on my interpretation shows normal sinus rhythm with rate of 78 and no acute change) Discharge Plan Discharge Chief Complaint: Recheck/Abnormal Lab/Rx Clinical Impression: Elevated blood pressure reading Patient Disposition: Home, Self-Care Time of Disposition Decision: 13:04 Condition: Good Mode of Transportation: Private Vehicle Prescriptions / Home Meds: No Action meloxicam 15 mg tablet 15 mg PO DAILY losartan 25 mg tablet 25 mg PO DAILY metoprolol succinate 25 mg tablet extended release 24 hr 25 mg PO DAILY Print Language: Portuguese Instructions: Hypertension (ED) Additional Instructions: Blood pressure recheck at your doctor's office as soon as reasonable. Referrals: RADHA BOTELLO [Primary Care Provider, Family Practice] - 1 week
[2025-06-05 11:36] VITALS: BP 160/100; PULSE 74
[2025-06-05 11:43] LABS: Hematocrit 49.8 % (36.0-48.0); Hemoglobin 17.1 g/dL (12.0-16.0); Immature Granulocytes Abs Auto 0.04 10^3/uL (0.00-0.03); Immature Granulocytes Pct Auto 0.5 % (0.0-0.5); Lymphocytes Absolute Auto 1.7 10^3/uL (1.2-3.8); Mean Corpuscular HGB Conc 34.3 g/dL (29.9-35.2); Mean Corpuscular Hemoglobin 31.6 pg (26.7-34.0); Mean Corpuscular Volume 92.1 fL (81.0-99.0); Platelet Count 242 10^3/uL (150-450); Red Blood Count 5.41 10^6/uL (4.20-5.40); White Blood Count 7.5 10^3/uL (4.0-11.0)
[2025-06-05 12:04] LABS: Anion Gap 8.7; Blood Urea Nitrogen 11.0 mg/dL (7.0-18.0); Calcium 9.2 mg/dL (8.5-10.1); Carbon Dioxide 28.5 mmol/L (21.0-32.0); Chloride 102 mmol/L (98-107); Estimated GFR (African America >60 (>=60 mL/min/1.73m^2); Estimated GFR (Non-African Ame >60 (>=60 mL/min/1.73m^2); Glucose 94 mg/dL (74-106); Potassium 3.2 mmol/L (3.5-5.1); Sodium 136 mmol/L (136-145)
[2025-06-05 12:24] VITALS: BP 155/90
[2025-06-05 12:52] VITALS: BP 145/80
== END 2025-06-05 13:20 | disposition home or self-care (01) ==
PROVIDERS: Emergency Provider Emergency Medicine; PCP Family Medicine
DX: I10 Essential (primary) hypertension (principal); F17.200 Nicotine dependence, unspecified, uncomplicated
CPT/HCPCS: 36415; 80048; 84484; 84703; 85025; 93005; 99284